=== PATIENT | female | born 1950 | race Hispanic/Latino ===

== ENCOUNTER 2018-12-25 09:33 | Emergency (ER) | payer OTHER ==
--- NOTE | 2018-12-25 10:40 | RAD REPORT ---
EXAM DESCRIPTION: CT - Chest Abd Pelvis Wo Con - 12/25/2018 10:16 am CLINICAL HISTORY: Cough and abdominal pain COMPARISON: none TECHNIQUE: Computed axial tomography of the chest, abdomen and pelvis was obtained. Oral contrast wa s given. IV contrast was not requested. All CT scans are performed using dose optimization technique as appropriate and may include automated exposure control or mA/KV adjustment according to patient size. FINDINGS: The evaluation of mediastinum, jessy, vessels and solid organs is limited secondary to the lack of IV contrast administration No mediastinal or hilar lymphadenopathy is seen. A pleural effusion is not present. A pericardial effusion is not seen. Mild chronic appearing lung opacities. The liver, spleen, pancreas, adrenals and kidneys appear grossly normal Diverticula stem from the colon without evidence of diverticulitis. Cholecystectomy A small hiatal hernia IMPRESSION: No acute abnormality displayed
--- NOTE | 2018-12-25 10:50 | EDPHYS ---
Physician Documentation [facility] Name: Milagros Cisneros Age: 68 yrs Sex: Female : 1950 Arrival Date: 12/25/2018 Time: 09:36 Bed 20 Private MD: ED Physician Richmond Samano HPI: 12/25 09:54 This 68 yrs old Female presents to ER via Ambulatory with complaints of Cough, snw Chest Congestion, Shortness Of Breath. 09:54 The patient or guardian reports cough, described as moderate. Onset: The snw symptoms/episode began/occurred 4 day(s) ago, and became persistent. Severity of symptoms: At their worst the symptoms were moderate. Modifying factors: The symptoms are alleviated by nothing. Associated signs and symptoms: Pertinent positives: subjective fever and abdominal pain. The patient has experienced similar episodes in the past. The patient has not recently seen a physician, and does not have an established primary care provider, just moved to [facility]. hx of pneumonia x 3, last episode one year ago. hx of diverticulitis. Historical: - Allergies: 09:55 No Known Allergies; ph - Home Meds: 09:55 omeprazole 40 mg Oral cpDR 1 cap once daily [Active]; potassium chloride 20 mEq Oral ph TbER 1 tab 2 times per day [Active]; ProAir HFA 90 mcg/actuation inhalation HFAA 2 puffs every 6 hours [Active]; Maxzide 75-50 mg Oral tab 1 tab once daily [Active]; - PMHx: 09:55 Hypertension; GERD; Borderline diabetic; Stage 3 kidney disease; Hepatitis; Pneumonia; ph Depression; - PSHx: 09:55 Hysterectomy; Cholecystectomy; ph - Immunization history:: Adult Immunizations unknown. - Social history:: Smoking status: Patient/guardian denies using tobacco. - Ebola Screening: : No symptoms or risks identified at this time. ROS: 09:52 Constitutional: Negative for fever, chills, and weight loss, Eyes: Negative for injury, snw pain, redness, and discharge, ENT: Negative for injury, pain, and discharge, Neck: Negative for injury, pain, and swelling, Cardiovascular: Negative for chest pain, palpitations, and edema. 09:52 Back: Negative for injury and pain, : Negative for injury, bleeding, discharge, and swelling, MS/Extremity: Negative for injury and deformity, Skin: Negative for injury, rash, and discoloration, Neuro: Negative for headache, weakness, numbness, tingling, and seizure. 09:52 Respiratory: Positive for cough, shortness of breath, at rest. 09:52 Abdomen/GI: Positive for abdominal pain, of the left lower quadrant, "hurts like hell". Exam: 09:52 Constitutional: This is a well developed, well nourished patient who is awake, alert, snw and in no acute distress. Head/Face: Normocephalic, atraumatic. Eyes: Pupils equal round and reactive to light, extra-ocular motions intact. Lids and lashes normal. Conjunctiva and sclera are non-icteric and not injected. Cornea within normal limits. Periorbital areas with no swelling, redness, or edema. ENT: Nares patent. No nasal discharge, no septal abnormalities noted. Tympanic membranes are normal and external auditory canals are clear. Oropharynx with no redness, swelling, or masses, exudates, or evidence of obstruction, uvula midline. Mucous membranes moist. Neck: Trachea midline, no thyromegaly or masses palpated, and no cervical lymphadenopathy. Supple, full range of motion without nuchal rigidity, or vertebral point tenderness. No Meningismus. Chest/axilla: Normal chest wall appearance and motion. Nontender with no deformity. No lesions are appreciated. Cardiovascular: Regular rate and rhythm with a normal S1 and S2. No gallops, murmurs, or rubs. Normal PMI, no JVD. No pulse deficits. Respiratory: Lungs have equal breath sounds bilaterally, clear to auscultation and percussion. No rales, rhonchi or wheezes noted. No increased work of breathing, no retractions or nasal flaring. Back: No spinal tenderness. No costovertebral tenderness. Full range of motion. Skin: Warm, dry with normal turgor. Normal color with no rashes, no lesions, and no evidence of cellulitis. MS/ Extremity: Pulses equal, no cyanosis. Neurovascular intact. Full, normal range of motion. Neuro: Awake and alert, GCS 15, oriented to person, place, time, and situation. Cranial nerves II-XII grossly intact. Motor strength 5/5 in all extremities. Sensory grossly intact. Cerebellar exam normal. Normal gait. 09:52 Abdomen/GI: Inspection: obese Bowel sounds: normal, Palpation: mild abdominal tenderness, in the left lower quadrant. Vital Signs: 09:41 BP 113 / 90; Pulse 76; Resp 18; Temp 99.4(O); Pulse Ox 99% on R/A; Weight 77.11 kg; hj Height 5 ft. 2 in. (157.48 cm); 11:08 BP 111 / 85; Pulse 64; Resp 18; Temp 98.9; Pulse Ox 100% on R/A; ph 09:41 Body Mass Index 31.09 (77.11 kg, 157.48 cm) hj MDM: 09:44 Patient medically screened. snw 10:50 Data reviewed: vital signs, nurses notes. Data interpreted: Pulse oximetry: on room air snw is 99 %. Interpretation: normal. Counseling: I had a detailed discussion with the patient and/or guardian regarding: the historical points, exam findings, and any diagnostic results supporting the discharge/admit diagnosis, radiology results, the need for outpatient follow up, to return to the emergency department if symptoms worsen or persist or if there are any questions or concerns that arise at home. Special discussion: Based on the patient's Hx, exam, and Dx evaluation, there is no indication for emergent surgery or inpatient Tx. It is understood by the patient/guardian that if the Sx's persist or worsen they need to return immediately for re-evaluation. Based on the history and exam findings, there is no indication for further emergent testing or inpatient evaluation. I discussed with the patient/guardian the need to see the primary care provider for further evaluation of the symptoms. 12/25 09:51 Order name: CT Chest Abdomen Pelvis W/O Contrast; Complete Time: 10:47 snw Administered Medications: 11:07 Drug: LevaQUIN 500 mg Route: PO; ph 11:07 Follow up: Response: No adverse reaction; Medication administered at discharge. Disposition: 15:52 Co-signature as Attending Physician, Richmond Samano MD. Disposition: 12/25/18 10:49 Discharged to Home. Impression: Cough, Lower abdominal pain, unspecified. - Condition is Stable. - Discharge Instructions: Abdominal Pain, Adult, Cool Mist Vaporizer, Cough, Adult, [id number]. - Prescriptions for Bentyl 20 mg Oral Tablet - take 1 tablet by ORAL route every 6 hours As needed; 20 tablet. Levaquin 500 mg Oral Tablet - take 1 tablet by ORAL route once daily for 7 days; 7 tablet. - Medication Reconciliation Form, Thank You Letter, Antibiotic Education, Prescription Opioid Use form. - Follow up: Private Physician; When: 2 - 3 days; Reason: Recheck today's complaints, Continuance of care, Re-evaluation by your physician. Follow up: Emergency Department; When: As needed; Reason: Worsening of condition. Signatures: Dispatcher [employer] EDMS Maddison Morales, AB-C DEMONSTRATOR SALES-Csnw Ashly Murry RN RN ph Samano, MD BRYANNA Fragoso gs Corrections: (The following items were deleted from the chart) 11:12 10:49 12/25/2018 10:49 Discharged to Home. Impression: Cough; Lower abdominal pain, ph unspecified. Condition is Stable. Forms are Medication Reconciliation Form, Thank You Letter, Antibiotic Education, Prescription Opioid Use. Follow up: Private Physician; When: 2 - 3 days; Reason: Recheck today's complaints, Continuance of care, Re-evaluation by your physician. Follow up: Emergency Department; When: As needed; Reason: Worsening of condition. snw
--- NOTE | 2018-12-25 10:50 | ER ---
Nurse's Notes [facility] Name: Milagros Cisneros Age: 68 yrs Sex: Female : 1950 Arrival Date: 12/25/2018 Time: 09:36 Bed 20 Private MD: Diagnosis: Cough;Lower abdominal pain, unspecified Presentation: 12/25 09:49 Presenting complaint: Patient states: Productive cough x 1 week, fever, chills, denies ph N/V/D, states, " I think my diverticulitis is acting up too." Reports LLQ pain since 12/11. Transition of care: patient was not received from another setting of care. Onset of symptoms was December 25, 2018. Risk Assessment: Do you want to hurt yourself or someone else? Patient reports no desire to harm self or others. Initial Sepsis Screen: Does the patient meet any 2 criteria? No. Patient's initial sepsis screen is negative. Does the patient have a suspected source of infection? Yes: Productive cough/pneumonia. Care prior to arrival: None. 09:49 Method Of Arrival: Ambulatory ph 09:49 Acuity: DIANE 3 ph Historical: - Allergies: 09:55 No Known Allergies; ph - Home Meds: 09:55 omeprazole 40 mg Oral cpDR 1 cap once daily [Active]; potassium chloride 20 mEq Oral ph TbER 1 tab 2 times per day [Active]; ProAir HFA 90 mcg/actuation inhalation HFAA 2 puffs every 6 hours [Active]; Maxzide 75-50 mg Oral tab 1 tab once daily [Active]; - PMHx: 09:55 Hypertension; GERD; Borderline diabetic; Stage 3 kidney disease; Hepatitis; Pneumonia; ph Depression; - PSHx: 09:55 Hysterectomy; Cholecystectomy; ph - Immunization history:: Adult Immunizations unknown. - Social history:: Smoking status: Patient/guardian denies using tobacco. - Ebola Screening: : No symptoms or risks identified at this time. Screenin:55 Abuse screen: Denies threats or abuse. Denies injuries from another. Nutritional ph screening: No deficits noted. Tuberculosis screening: No symptoms or risk factors identified. Fall Risk None identified. Assessment: 10:00 General: Appears in no apparent distress. comfortable, Behavior is calm, cooperative, ph appropriate for age, Reports chills for fever for > 3 days. Pain: Complains of pain in left lower quadrant. Neuro: Level of Consciousness is awake, alert, obeys commands, Oriented to person, place, time, situation. Cardiovascular: Reports shortness of breath, Denies chest pain, diaphoresis, fatigue, lightheadedness, nausea, vomiting, Capillary refill < 3 seconds in bilateral fingers Patient's skin is warm and dry. Rhythm is regular. Respiratory: Reports shortness of breath on exertion cough that is productive, Airway is patent Respiratory effort is even, unlabored, Respiratory pattern is regular, symmetrical, Breath sounds are clear bilaterally. GI: Abdomen is round non-distended, Bowel sounds present X 4 quads. Reports lower abdominal pain, Patient currently denies diarrhea, nausea, vomiting. Derm: Skin is intact, is healthy with good turgor, Skin is pink, warm \\T\\ dry. Musculoskeletal: Circulation, motion, and sensation intact. Range of motion: intact in all extremities. 11:10 Reassessment: Patient appears in no apparent distress at this time. Patient and/or ph family updated on plan of care and expected duration. Pain level reassessed. Patient is alert, oriented x 3, equal unlabored respirations, skin warm/dry/pink. Pt d/c home w/ family. Vital Signs: 09:41 BP 113 / 90; Pulse 76; Resp 18; Temp 99.4(O); Pulse Ox 99% on R/A; Weight 77.11 kg; Height 5 ft. 2 in. (157.48 cm); 11:08 BP 111 / 85; Pulse 64; Resp 18; Temp 98.9; Pulse Ox 100% on R/A; ph 09:41 Body Mass Index 31.09 (77.11 kg, 157.48 cm) ED Course: 09:36 Patient arrived in ED. mr 09:38 Ashly Murry, ANGIE is Primary Nurse. ph 09:43 Maddison Morales FNP-C is PHCP. snw 09:43 Richmond Samano MD is Attending Physician. snw 09:50 Triage completed. ph 09:55 Arm band placed on Patient placed in an exam room, on a stretcher, on pulse oximetry. ph 09:56 Patient has correct armband on for positive identification. Placed in gown. Bed in low ph position. Call light in reach. Side rails up X 1. Pulse ox on. NIBP on. Door closed. Noise minimized. Warm blanket given. Head of bed elevated. 10:17 CT Chest Abdomen Pelvis W/O Contrast In Process Unspecified. EDMS 11:08 No provider procedures requiring assistance completed. Patient did not have IV access ph during this emergency room visit. Administered Medications: 11:07 Drug: LevaQUIN 500 mg Route: PO; ph 11:07 Follow up: Response: No adverse reaction; Medication administered at discharge. ph Outcome: 10:49 Discharge ordered by MD. aguirre 11:08 Discharged to home ambulatory, with family. ph 11:08 Condition: good 11:08 Discharge instructions given to patient, Instructed on discharge instructions, follow up and referral plans. medication usage, Demonstrated understanding of instructions, follow-up care, medications, Prescriptions given X 2. 11:12 Patient left the ED. ph Signatures: Dispatcher [employer] EDMD Maddison Morales, AB-C PUBLICATIONS INSPECTOR-Csnw Dae Moreau Patricia RN RN Gene Sanon RN RN
[2018-12-25] MEDS ORDERED: levoFLOXacin 500 MG TAB ONE (11:10)
== END 2018-12-25 11:12 | disposition home or self-care (01) ==
LOC: ER 09:33
DX: R10.32 Left lower quadrant pain (principal); I12.9 Hypertensive chronic kidney disease with stage 1 through stage 4 chronic kidney disease, or unspecified chronic kidney disease; N18.3 Chronic kidney disease, stage 3 (moderate); F32.9 Major depressive disorder, single episode, unspecified; K21.9 Gastro-esophageal reflux disease without esophagitis
CPT/HCPCS: 71250; 74176; 99284